=== PATIENT | male | born 2000 | race Caucasian/White ===

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

== ENCOUNTER 2020-10-01 08:56 | Emergency (ER) | payer OTHER, BC ==
[2020-10-01 10:00] LABS: Urine Blood Negative (Negative); Urine Glucose Negative (Negative); Urine Protein 1+ (Negative); Urine Specific Gravity 1.025 (1.005-1.030); Urine pH 5.5 (5.0-7.0)
[2020-10-01 11:28] LABS: BUN Blood Urea Nitrogen 18 mg/dL (7-18); Bicarbonate 28 mmol/L (21-32); Glucose Level 91 mg/dL (74-106); Sodium Level 142 mmol/L (136-145)
[2020-10-01 11:30] LABS: Absolute Lymphocytes (CBC) 1.1 K/uL (0.7-4.9); Basophils % 0.4 % (0-1.3); Hematocrit 46.7 % (39.6-49.0); Lymphocytes % 27.9 % (15.3-44.8); MPV 8.9 fL (7.6-11.3); RBC Red Blood Cell Count 5.44 M/uL (4.33-5.43)
--- NOTE | 2020-10-01 11:48 | ER ---
Nurse's Notes [facility] Name: Zack Roman Age: 20 yrs Sex: Male : 2000 Arrival Date: 10/01/2020 Time: 09:00 Bed 5 Private MD: Diagnosis: COVID-19 Presentation: 10/01 09:10 Chief complaint: Patient states: Bilateral lower back pain with SERRANO and achy legs for 4 ll1 days. + Fever 99.0 at home, slight cough and congestion. Coronavirus screen: Client denies travel out of the [place] in the last 14 days. congestion, cough unrelated to allergies, fatigue, fever, headache, shortness of breath, Client presents with at least one sign or symptom that may indicate coronavirus-19. Standard/surgical mask placed on the client. Ebola Screen: Patient denies travel to an Ebola-affected area in the 21 days before illness onset. Initial Sepsis Screen: Does the patient meet any 2 criteria? No. Patient's initial sepsis screen is negative. Does the patient have a suspected source of infection? Yes: Productive cough/pneumonia. Risk Assessment: Do you want to hurt yourself or someone else? Patient reports no desire to harm self or others. Onset of symptoms was September 28, 2020. 09:10 Method Of Arrival: Ambulatory ll1 09:10 Acuity: ED 3 ll1 Triage Assessment: 09:15 Headache History: The patient has had previous headaches and this one is similar to bp previous episodes. General: Appears in no apparent distress. uncomfortable, obese, Behavior is cooperative, appropriate for age, anxious. Pain: Complains of pain in head Pain currently is 4 out of 10 on a pain scale. Pain began 2-3 days ago. Also complains of no other associated symptoms. EENT: Reports nasal congestion. Neuro: Level of Consciousness is awake, alert, obeys commands, Oriented to Appropriate for age. Cardiovascular: No deficits noted. Respiratory: No deficits noted. GI: No signs and/or symptoms were reported involving the gastrointestinal system. : Reports pain in bilateral flank(s). Derm: No deficits noted. Musculoskeletal: No deficits noted. Historical: - Allergies: 09:13 Zithromax; states he has had since, no longer allergic; ll1 - PMHx: 09:13 Asthma; ll1 - PSHx: 09:13 femur surgery; shoulder surgery; ll1 - Immunization history:: Flu vaccine is not up to date. - Social history:: Smoking status: Patient reports the use of cigarette tobacco products, denies chronic smoking, but will smoke occasionally, smokes one-half pack cigarettes per day. Screenin:15 Abuse screen: Denies threats or abuse. Denies injuries from another. Nutritional bp screening: No deficits noted. Tuberculosis screening: No symptoms or risk factors identified. Fall Risk None identified. Assessment: 09:15 General: SEE TRIAGE NOTE. bp 10:30 Reassessment: PROVIDER AT B/S. PT INSISTING THAT "SOMETHING MUST BE WRONG" AND bp REQUESTING BLOODWORK. Pain: Denies pain. 12:02 Reassessment: Patient appears in no apparent distress at this time. Patient and/or ca1 family updated on plan of care and expected duration. Pain level reassessed. Patient is alert, oriented x 3, equal unlabored respirations, skin warm/dry/pink. Vital Signs: 09:10 BP 147 / 93; Pulse 90; Resp 17; Temp 97.2; Pulse Ox 97% on R/A; Weight 104.33 kg; ll1 Height 6 ft. 0 in. (182.88 cm); Pain 5/10; 10:30 BP 127 / 91; Pulse 89; Resp 17; Pulse Ox 98% ; bp 12:02 BP 130 / 94; Pulse 99; Resp 15 S; Pulse Ox 100% on R/A; ca1 09:10 Body Mass Index 31.19 (104.33 kg, 182.88 cm) ll1 ED Course: 09:00 Patient arrived in ED. as 09:05 Mamadou Patel PA is PHCP. jr8 09:05 Lloyd Singh MD is Attending Physician. jr8 09:13 Triage completed. ll1 09:13 Arm band placed on Patient placed in an exam room, on a stretcher. ll1 09:15 Patient has correct armband on for positive identification. Bed in low position. Call bp light in reach. Side rails up X2. 09:26 Cecil Sosa, DAVID is Primary Nurse. bp 09:39 COVID-19 : Document "Date of Symptom Onset" if Symptomatic. Sent. bp 11:10 No provider procedures requiring assistance completed. Initial lab(s) drawn, by me, ca1 sent to lab. Inserted saline lock: 20 gauge in right antecubital area, using aseptic technique. Blood collected. 12:02 IV discontinued, intact, bleeding controlled, No redness/swelling at site. Pressure ca1 dressing applied. Administered Medications: No medications were administered Outcome: 11:47 Discharge ordered by MD. pena 12:02 Discharged to home ambulatory, with significant other. ca1 12:02 Condition: stable 12:02 Discharge instructions given to patient, Instructed on discharge instructions, follow up and referral plans. Demonstrated understanding of instructions, follow-up care. 12:03 Patient left the ED. ca1 Signatures: Jackie Joseph Josh, PA PA jr8 Cecil Sosa, RN RN Tahmina Harrison RN RN ca1 Yrn Morrison RN RN ll1
--- NOTE | 2020-10-01 11:48 | EDPHYS ---
Physician Documentation [facility] Name: Zack Roman Age: 20 yrs Sex: Male : 2000 Arrival Date: 10/01/2020 Time: 09:00 Bed 5 Private MD: ED Physician Lloyd Singh HPI: 10/01 09:47 This 20 yrs old Male presents to ER via Ambulatory with complaints of Flank jr8 Pain, Headache, Joint Pain. 09:47 Patient stated that since Sunday he has had general fatigue, slight cough, headache, jr8 myalgias, arthralgias, and low grade fever that is not improving . Severity of symptoms: At their worst the symptoms were mild in the emergency department the symptoms are unchanged. The patient has not experienced similar symptoms in the past. The patient has not recently seen a physician. Historical: - Allergies: 09:13 Zithromax; states he has had since, no longer allergic; ll1 - PMHx: 09:13 Asthma; ll1 - PSHx: 09:13 femur surgery; shoulder surgery; ll1 - Immunization history:: Flu vaccine is not up to date. - Social history:: Smoking status: Patient reports the use of cigarette tobacco products, denies chronic smoking, but will smoke occasionally, smokes one-half pack cigarettes per day. ROS: 09:47 Constitutional: Positive for body aches, fatigue, fever, malaise. jr8 09:47 ENT: Positive for sinus congestion. 09:47 Respiratory: Positive for cough. 09:47 Neuro: Positive for headache. 09:47 All other systems are negative. Exam: 09:47 Eyes: Pupils equal round and reactive to light, extra-ocular motions intact. Lids and jr8 lashes normal. Conjunctiva and sclera are non-icteric and not injected. Cornea within normal limits. Periorbital areas with no swelling, redness, or edema. ENT: Nares patent. No nasal discharge, no septal abnormalities noted. Tympanic membranes are normal and external auditory canals are clear. Oropharynx with no redness, swelling, or masses, exudates, or evidence of obstruction, uvula midline. Mucous membranes moist. Neck: Trachea midline, no thyromegaly or masses palpated, and no cervical lymphadenopathy. Supple, full range of motion without nuchal rigidity, or vertebral point tenderness. No Meningismus. Cardiovascular: Regular rate and rhythm with a normal S1 and S2. No gallops, murmurs, or rubs. Normal PMI, no JVD. No pulse deficits. Respiratory: Lungs have equal breath sounds bilaterally, clear to auscultation and percussion. No rales, rhonchi or wheezes noted. No increased work of breathing, no retractions or nasal flaring. Abdomen/GI: Soft, non-tender, with normal bowel sounds. No distension or tympany. No guarding or rebound. No evidence of tenderness throughout. Back: No spinal tenderness. No costovertebral tenderness. Full range of motion. Skin: Warm, dry with normal turgor. Normal color with no rashes, no lesions, and no evidence of cellulitis. MS/ Extremity: Pulses equal, no cyanosis. Neurovascular intact. Full, normal range of motion. Neuro: Awake and alert, GCS 15, oriented to person, place, time, and situation. Cranial nerves II-XII grossly intact. Motor strength 5/5 in all extremities. Sensory grossly intact. Vital Signs: 09:10 BP 147 / 93; Pulse 90; Resp 17; Temp 97.2; Pulse Ox 97% on R/A; Weight 104.33 kg; ll1 Height 6 ft. 0 in. (182.88 cm); Pain 5/10; 10:30 BP 127 / 91; Pulse 89; Resp 17; Pulse Ox 98% ; bp 12:02 BP 130 / 94; Pulse 99; Resp 15 S; Pulse Ox 100% on R/A; ca1 09:10 Body Mass Index 31.19 (104.33 kg, 182.88 cm) ll1 MDM: 09:05 Patient medically screened. 8 11:23 Data reviewed: vital signs, nurses notes, lab test result(s), and as a result, I will jr8 discharge patient. Data interpreted: Pulse oximetry: on room air is 98 %. Interpretation: normal. Counseling: I had a detailed discussion with the patient and/or guardian regarding: the historical points, exam findings, and any diagnostic results supporting the discharge/admit diagnosis, lab results, the need for outpatient follow up, a family practitioner, to return to the emergency department if symptoms worsen or persist or if there are any questions or concerns that arise at home. ED course: Patient insistent on blood work which we did for him. COVID was positive which is consistent with symptoms patient is experiencing. Counseled him on the vitamins we suggest taking. No need for steroids at this time. To monitor himself at home. If worse to come back . 10/01 09:24 Order name: COVID-19 : Document "Date of Symptom Onset" if Symptomatic. [facility] 10/01 10:00 Order name: Urine Dipstick-Ancillary; Complete Time: 10:09 [facility] 10/01 10:50 Order name: CBC with Diff [facility] 10/01 10:50 Order name: Basic Metabolic Panel; Complete Time: 11:38 [facility] 10/01 11:14 Order name: SARS-COV-2 RT PCR; Complete Time: 11:21 [facility] 10/01 09:24 Order name: Urine Dipstick-Ancillary (obtain specimen); Complete Time: 10:01 [facility] 10/01 11:44 Order name: CBC Smear Scan EDHI Administered Medications: No medications were administered Disposition: 16:36 Co-signature as Attending Physician, Lloyd Singh MD I agree with the assessment and kdr plan of care. Disposition: 10/01/20 11:47 Discharged to Home. Impression: COVID-19. - Condition is Stable. - Discharge Instructions: COVID-19. - Work release form, Medication Reconciliation Form, Thank You Letter, Antibiotic Education, Prescription Opioid Use form. - Follow up: Private Physician; When: 1 week; Reason: Recheck today's complaints, Continuance of care, Re-evaluation by your physician. - Problem is new. - Symptoms have improved. Signatures: Dispatcher [facility] Lloyd Singh MD MD [facility] Mamadou Patel PA PA jr8 Tahmina Puri RN RN ca1 Yrn Morrison RN RN ll1 Corrections: (The following items were deleted from the chart) 10:08 09:25 CORONAVIRUS ordered. [facility] 12:03 11:47 10/01/2020 11:47 Discharged to Home. Impression: COVID-19. Condition is Stable. ca1 Forms are Medication Reconciliation Form, Thank You Letter, Antibiotic Education, Prescription Opioid Use. Follow up: Private Physician; When: 1 week; Reason: Recheck today's complaints, Continuance of care, Re-evaluation by your physician. Problem is new. Symptoms have improved. jr8
[2020-10-01 12:10] VITALS: TEMP 97.2
[2020-10-01 12:13] VITALS: BP 130/94; O2SAT 100
[2020-10-01 12:47] LABS: Blood Morphology Comment NOT SEEN (NOT SEEN); Platelet Estimate ADEQ; White Blood Cell Scan OK (OK)
== END 2020-10-01 12:03 | disposition home or self-care (01) ==
LOC: ER 08:56
DX: U07.1 COVID-19 (principal); F17.210 Nicotine dependence, cigarettes, uncomplicated
CPT/HCPCS: 85025; 80048; 36415; 81003; 99283; U0003